=== PATIENT | female | born 2000 | race Caucasian/White ===

== ENCOUNTER 2025-02-25 21:06 | Emergency (ER) | payer MEDICAID, OTHER ==
[~2025-02-25] VITALS: Ht 162.6 cm; Wt 67.0 kg
[2025-02-25 21:32] VITALS: O2SAT 98
[2025-02-25] MEDS ORDERED: ACET-2708 MT (21:39)
[2025-02-25] MEDS: ACETAMINOPHEN 500MG TABLET PO ONE (22:17)
[2025-02-25 22:35] VITALS: BP 108/72; PULSE 77; RESP 18; TEMP 36.7; O2SAT 100
== END 2025-02-25 22:37 | disposition home or self-care (01) ==
LOC: ER 21:06
DX: S20.221A Contusion of right back wall of thorax, initial encounter (principal); S20.211A Contusion of right front wall of thorax, initial encounter; M25.511 Pain in right shoulder; M54.6 Pain in thoracic spine; Z88.6 Allergy status to analgesic agent; V89.2XXA Person injured in unspecified motor-vehicle accident, traffic, initial encounter; Y93.89 Activity, other specified; Y92.89 Other specified places as the place of occurrence of the external cause; Y99.8 Other external cause status
CPT/HCPCS: 71045; 99283